=== PATIENT | female | born 1985 | race Caucasian/White ===

== ENCOUNTER 2022-07-10 10:46 | Day surgery (SDC) | payer OTHER, SELFPAY ==
--- NOTE | 2022-07-10 10:54 | US_ITS ---
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 FINDINGS: IMAGING: Ultrasound. BIOPSY NEEDLE: 20-gauge spring-loaded core biopsy needle. LOCATION: Upper lateral right neck, level 2 hypoechoic circumscribed mass. SPECIMEN TYPE: Cellular tissue. LOCAL ANESTHETIC: Buffered Xylocaine. COMPLICATIONS: None. LABORATORY: Prepared slide smears and washings for cell block evaluation. OTHER: Negative. PATHOLOGY: Pending. An addendum will be added when results are available. IMPRESSION: 1. Uneventful ultrasound guided fine needle aspiration (FNA). 2. Pathology results are pending. Electronically authenticated by: ZULAY BRANNON Date: 07/10/2022 12:51
[2022-07-10 11:05] VITALS: BP 117/73; PULSE 78; O2SAT 98; BMI 41.4
[2022-07-10] MEDS: LIDOCAINE HCL 10 ML, SODIUM BICARBONATE 1 MEQ INJ (12:00)
--- NOTE | 2022-07-10 13:46 | PC.NURSE ---
Time out completed at 1156 . Staff present in room Rizwana Renteria Bmyers, Rachael [employer] student.
== END 2022-07-10 15:00 | disposition home or self-care (01) ==
LOC: US 10:47
PROVIDERS: Radiology Diagnostic Radiology; PCP Otolaryngology; Visit Provider Otolaryngology
DX: R22.1 Localized swelling, mass and lump, neck (principal)
CPT/HCPCS: 36415; 38505; 88184; 88185; 88187; 88307; 88341; 88342